=== PATIENT | female | born 1945 | race Caucasian/White ===

== ENCOUNTER → 2016-09-13 | Outpatient (CLI) | payer MEDICARE, BC | LOC: KOH-I 11:27 | DX: R60.0 Localized edema (principal) | CPT/HCPCS: 93971 ==

== ENCOUNTER 2020-03-26 11:44 | Observation (INO) | payer MEDICARE ==
[2020-03-26 14:55] LABS: RED BLOOD COUNT 4.35 M/UL (4.00-5.10); WHITE BLOOD COUNT 6.1 K/UL (4.5-11.0)
[2020-03-26 15:15] LABS: BUN/CREATININE RATIO 12 (0-10)
[2020-03-26] MEDS ORDERED: AMITRIPTYLINE100 MG PO (21:55)
[2020-03-26] MEDS ORDERED: AMLODIPINE BESYL5 MG PO (21:55)
[2020-03-26] MEDS ORDERED: LIPITOR TAB 2020 MG PO (21:56)
[2020-03-26] MEDS ORDERED: CATAPRES 0.1MG0.1 MG PO (21:56)
[2020-03-26] MEDS ORDERED: WARFARIN SODIUM4 MG PO (21:57)
[2020-03-26] MEDS ORDERED: LEVOTHYROXINE25 MC1 PO (21:58)
[2020-03-26] MEDS ORDERED: SINGULAIR10 MG PO (21:59)
[2020-03-27 04:31] LABS: HEMOGLOBIN 11.8 gm/dl (12.3-15.3); RED BLOOD COUNT 4.26 M/UL (4.00-5.10)
[2020-03-27 05:10] LABS: BUN/CREATININE RATIO 18 (0-10)
[2020-03-28 04:35] LABS: HEMOGLOBIN 12.1 gm/dl (12.3-15.3); RED BLOOD COUNT 4.35 M/UL (4.00-5.10); WHITE BLOOD COUNT 4.7 K/UL (4.5-11.0)
--- NOTE | 2020-03-28 13:59 | NUR ---
PT'S HALTER MONITOR GIVEN TO RESPIRATORY. PT ALSO STATES SHE GOT A LITTLE SOA, PAIN IN NECK AND THEN DIZZINESS WHEN SHE AMBULATED IN ROOM PRIOR TO BEING DISCHARGED. DR. PARKER NOTIFIED OF THIS INCIDENT. ALSO DR. PARKER ASKED ABOUT WHEN TO CONTINUE PT'S COUMADIN AND HE STATED FOR HER TO CONTINUE IT BACK TONIGHT. PT NOTIFIED.
== END 2020-03-28 13:58 | disposition home or self-care (01) ==
LOC: ER1 11:44 → CDU 15:38 → M/S 15:38
PROVIDERS: Family Medicine; ADMIT Internal Medicine
DX: R55 Syncope and collapse (principal); R07.9 Chest pain, unspecified; I10 Essential (primary) hypertension; E78.5 Hyperlipidemia, unspecified; E11.9 Type 2 diabetes mellitus without complications; I80.9 Phlebitis and thrombophlebitis of unspecified site; I48.0 Paroxysmal atrial fibrillation; J45.909 Unspecified asthma, uncomplicated; E03.9 Hypothyroidism, unspecified; I51.7 Cardiomegaly
CPT/HCPCS: ECHO; 36415; 70450; 80053; 82550; 82553; 82962; 83735; 83874; 84443; 84484; 85025; 85610; 93005; 93306; 93880; 97161; 99285; G0378; J7030

== ENCOUNTER → 2020-03-26 | Outpatient (CLI) | payer MEDICARE ==
[~2020-03-26] MED LIST: ACID CONTROLLER20 MG PO; AMITRIPTYLINE100 MG PO; AMLODIPINE BESYL5 MG PO; CARVEDILOL25 MG PO; CATAPRES 0.1MG0.1 MG PO; FLONASE 0.05% N16 GM; GABAPENTIN600 MG PO; HYDROXYZINE HCL25 MG PO; IMODIUM CAP 2 MG2 MG PO; JANTOVEN1 MG PO; JANTOVEN4 MG PO; LEVEMIR100 UNIT/1 SC; LEVOTHYROXINE25 MC1 PO; LIPITOR TAB 2020 MG PO; LOSARTAN POTASS25 MG PO; METFORMIN HCL500 MG PO; NITRO-TIME2.5 MG PO; NOVOLOG 10100 UNITS1 INJ; OMNICEF 300 MG300 MG PO; PREDFORTE OP SUS5 ML EYERT; SINGULAIR10 MG PO; VENTOLIN HFA 66.7 GM INH; VITAMIN D21250 MCG PO; WARFARIN SODIUM4 MG PO; ZOLOFT100 MG PO
== END ==
LOC: RT 11:04
DX: R00.2 Palpitations (principal)

== ENCOUNTER 2020-06-09 20:20 | Emergency (ER) | payer MEDICARE ==
[~2020-06-09 20:20] MED LIST changes: -ACID CONTROLLER20 MG PO; -CARVEDILOL25 MG PO; -FLONASE 0.05% N16 GM; -GABAPENTIN600 MG PO; -HYDROXYZINE HCL25 MG PO; -IMODIUM CAP 2 MG2 MG PO; -JANTOVEN1 MG PO; -JANTOVEN4 MG PO; -LEVEMIR100 UNIT/1 SC; -LOSARTAN POTASS25 MG PO; -METFORMIN HCL500 MG PO; -NITRO-TIME2.5 MG PO; -NOVOLOG 10100 UNITS1 INJ; -OMNICEF 300 MG300 MG PO; -PREDFORTE OP SUS5 ML EYERT; -VENTOLIN HFA 66.7 GM INH; -VITAMIN D21250 MCG PO; -ZOLOFT100 MG PO
[2020-06-09 21:21] LABS: HEMOGLOBIN 12.2 gm/dl (12.3-15.3); RED BLOOD COUNT 4.33 M/UL (4.00-5.10); WHITE BLOOD COUNT 5.2 K/UL (4.5-11.0)
[2020-06-09 21:46] LABS: BUN/CREATININE RATIO 18 (0-10)
[2020-06-09] MEDS ORDERED: OMNICEF 300 MG300 MG PO (23:12)
== END 2020-06-09 23:30 | disposition home or self-care (01) ==
LOC: ER1 20:20
PROVIDERS: Physician Assistant
DX: S00.93XA Contusion of unspecified part of head, initial encounter (principal); S80.212A Abrasion, left knee, initial encounter; S50.312A Abrasion of left elbow, initial encounter; J44.9 Chronic obstructive pulmonary disease, unspecified; E03.9 Hypothyroidism, unspecified; Z90.49 Acquired absence of other specified parts of digestive tract; Z79.01 Long term (current) use of anticoagulants; E11.9 Type 2 diabetes mellitus without complications; W19.XXXA Unspecified fall, initial encounter
CPT/HCPCS: 70450; 71045; 80053; 81001; 82550; 82553; 82962; 83874; 84484; 85025; 85610; 87086; 93005; 99285

== ENCOUNTER 2020-10-15 12:16 | Emergency (ER) | payer MEDICARE ==
[~2020-10-15] VITALS: Ht 157.5 cm; Wt 81.6 kg
[~2020-10-15 12:16] MED LIST changes: +OMNICEF 300 MG300 MG PO
[2020-10-15 13:57] LABS: HEMOGLOBIN 11.5 gm/dl (12.3-15.3); RED BLOOD COUNT 4.08 M/UL (4.00-5.10); WHITE BLOOD COUNT 8.4 K/UL (4.5-11.0)
[2020-10-15 14:21] LABS: BUN/CREATININE RATIO 14 (0-10)
[2020-10-15] MEDS ORDERED: HYDROXYZINE HCL25 MG PO ×2 (15:55→21:58)
[2020-10-15] MEDS ORDERED: LEVEMIR100 UNIT/1 SC (15:55)
[2020-10-15] MEDS ORDERED: JANTOVEN4 MG PO (15:56)
[2020-10-15] MEDS ORDERED: JANTOVEN1 MG PO (15:57)
[2020-10-15] MEDS ORDERED: NITRO-TIME2.5 MG PO (15:57)
[2020-10-15] MEDS ORDERED: PREDFORTE OP SUS5 ML EYERT (15:58)
[2020-10-15] MEDS ORDERED: ACID CONTROLLER20 MG PO (15:59)
[2020-10-15] MEDS ORDERED: VENTOLIN HFA 66.7 GM INH (15:59)
[2020-10-15] MEDS ORDERED: FLONASE 0.05% N16 GM (15:59)
[2020-10-15] MEDS ORDERED: VITAMIN D21250 MCG PO (16:00)
[2020-10-15] MEDS ORDERED: IMODIUM CAP 2 MG2 MG PO (16:00)
[2020-10-15] MEDS ORDERED: CARVEDILOL25 MG PO (21:56)
[2020-10-15] MEDS ORDERED: METFORMIN HCL500 MG PO (21:58)
[2020-10-15] MEDS ORDERED: LOSARTAN POTASS25 MG PO (21:58)
[2020-10-15] MEDS ORDERED: GABAPENTIN600 MG PO (21:59)
[2020-10-15] MEDS ORDERED: ZOLOFT100 MG PO (22:00)
[2020-10-15] MEDS ORDERED: NOVOLOG 10100 UNITS1 INJ (22:00)
== END 2020-10-15 19:00 | disposition short-term general hospital (02) ==
LOC: ER1 12:16 → CDU 15:18 → ER1 15:18
PROVIDERS: Physician Assistant
DX: E11.649 Type 2 diabetes mellitus with hypoglycemia without coma (principal); Z79.4 Long term (current) use of insulin; Z79.899 Other long term (current) drug therapy; Z20.822 Contact with and (suspected) exposure to COVID-19
CPT/HCPCS: 80053; 82962; 85025; 96374; 99285; U0002

== ENCOUNTER → 2021-03-08 | Outpatient (CLI) | payer MEDICARE ==
[~2021-03-08] MED LIST changes: +ACID CONTROLLER20 MG PO; +CARVEDILOL25 MG PO; +FLONASE 0.05% N16 GM; +GABAPENTIN600 MG PO; +HYDROXYZINE HCL25 MG PO; +IMODIUM CAP 2 MG2 MG PO; +JANTOVEN1 MG PO; +JANTOVEN4 MG PO; +LEVEMIR100 UNIT/1 SC; +LOSARTAN POTASS25 MG PO; +METFORMIN HCL500 MG PO; +NITRO-TIME2.5 MG PO; +NOVOLOG 10100 UNITS1 INJ; +PREDFORTE OP SUS5 ML EYERT; +VENTOLIN HFA 66.7 GM INH; +VITAMIN D21250 MCG PO; +ZOLOFT100 MG PO
== END ==
LOC: SLEEP 09:55
DX: G47.33 Obstructive sleep apnea (adult) (pediatric) (principal)
CPT/HCPCS: 95810

== ENCOUNTER → 2021-10-28 | Outpatient (CLI) | payer MEDICARE | LOC: MAMO 10-14 11:30 | DX: Z12.31 Encounter for screening mammogram for malignant neoplasm of breast (principal) | CPT/HCPCS: 77063; 77067 ==

== ENCOUNTER → 2021-11-09 | Outpatient (CLI) | payer MEDICARE | LOC: ECHO 08:21 | DX: I25.119 Atherosclerotic heart disease of native coronary artery with unspecified angina pectoris (principal); I10 Essential (primary) hypertension; R07.9 Chest pain, unspecified; R06.02 Shortness of breath; I08.3 Combined rheumatic disorders of mitral, aortic and tricuspid valves | CPT/HCPCS: ECHO; 78452; 93017; 93306; A9502; J2785 ==